=== PATIENT | female | born 1935 | race Caucasian/White ===

== ENCOUNTER 2019-02-05 20:19 | Observation (INO) ==
[2019-02-05] MEDS ORDERED: Aspirin 81 MG TAB.CHEW PO ONE (20:29)
[2019-02-05 21:31] LABS: Basophils % 0.5 %; Eosinophils # 0.5 K/mcL (0.0-0.6); Eosinophils % 5.5 %; Hematocrit 43.9 % (35.3-44.9); Hemoglobin 14.4 g/dL (11.5-15.4); Immature Granulocytes % 0.4 % (0-4); Lymphocytes # 1.3 K/mcL (0.6-4.6); Lymphocytes % 15.7 %; Mean Corpuscular HGB Conc 32.8 g/dL (31.6-35.5); Mean Corpuscular Hemoglobin 30.3 pg (28.0-33.3); Mean Corpuscular Volume 92.4 fL (83.0-100.0); Mean Platelet Volume 10.8 fL (9.4-12.4); Monocytes # 0.8 K/mcL (0.0-1.3); Monocytes % 9.6 %; Neutrophils # 5.6 K/mcL (1.6-8.9); Platelet Count 167 K/mcL (140-400); Red Blood Count 4.75 M/mcL (3.82-4.97); Red Cell Distribution Width 13.1 % (11.5-14.5); Segmented Neutrophils % 68.3 %; White Blood Count 8.2 K/mcL (4.3-11.1)
[2019-02-05 21:41] LABS: BUN/Creatinine Ratio 20 (6-26); Blood Urea Nitrogen 20 mg/dL (8-23); Calcium 9.5 mg/dL (8.6-10.3); Carbon Dioxide 25 mEq/L (23-29); Chloride 108 mEq/L (98-107); Glucose 99 mg/dL (70-105); Osmolality,Calculated 291 (280-300); Potassium 4.2 mEq/L (3.5-5.1); Sodium 139 mEq/L (136-145); Troponin I < 0.03 ng/mL (< 0.04); eGFR For African Americans > 60 (> 60); eGFR For Non-African Americans 54 (> 60)
--- NOTE | 2019-02-05 22:48 | Emergency Department Note ---
Disposition Clinical Impression: Chest pain Disposition: Admitted As Inpatient Condition: Good Time of Disposition: 22:48 General Adult HPI - General Chief complaint: ED Chest Pain Stated complaint: cp Time Seen by Provider: 02/05/19 20:28 Source: patient, family Limitations: no limitations - History of Present Illness HPI Narrative: Patient 83-year-old female presents to emergency department with chief complaint of chest pain. Patient reports she was at a [place] restaurant was eating salad started having a lot of mucus stuck that started a day or she had a spitted up within the patient noticed that she had a fullness sensation in her chest. Patient states that this feels similar to whenever she had to have her stents placed before in the past patient denies radiation of the shoulder the jaw states that they are prior cardiac issues she has not had those symptoms in the past. Patient denies diaphoresis states that by the time she arrived here t he emergency department her symptoms have resolved. Pain Scale: 0 - Related Data Home Medications Medication Instructions Recorded Confirmed Aspirin 81 mg pe PO DAILY 02/05/19 02/05/19 Citalopram 40 mg PO DAILY 02/05/19 02/05/19 Clopidogrel 75 mg PO DAILY 02/05/19 02/05/19 Isosorbide Mononitrate 30 mg pe PO DAILY 02/05/19 02/05/19 Losartan 25 mg PO DAILY 02/05/19 02/05/19 Meloxicam 7.5 mg PO DAILY 02/05/19 02/05/19 Simvastatin 40 mg PO DAILY 02/05/19 02/05/19 amLODIPine 10 mg PO DAILY 02/05/19 02/05/19 Allergies Allergy/AdvReac Type Severity Reaction Status Date / Time No Known Allergies Allergy Verified 02/05/19 20:53 All systems ED: reviewed and negative except as stated. Past Medical History - Past Medical History Attestation: Yes The following information was validated with the patient. Medical history: Reports: coronary artery disease, hyperlipidemia, hypertension, myocardial infarction Psychiatric history: Reports: no psych history - Social History Smoking Status: Never smoker Alcohol use: Reports: none Drug use: Reports: none Physical Exam General: Conversant and pleasant interactive and nontoxic. Head: Normocephalic/atraumatic Eyes:PERRLA, EOMI, no conjunctivitis Nares: Without d/c. Ears: No erythema or d/c noted. Oralpharnyx: P&MMM noted, Neck: Supple, no JVD or LUBRICATOR GRANULATOR noted. Cardovascular: regular rate and rhythm without murmur, brisk capillary refill, no peripheral edema. Lungs: Clear to ascultation bilaterally, non-labored Abd: Soft nontender, Non Distended, no guarding, no rebound. : Defered Extremities: moves all extremities equally Neuro: AOx3, no obvious gross neuro deficit Psych: Normal Affect Derm: No rash noted - General Limitations: no limitations General appearance: alert Course Course Narrative: The patient has been a symptomatically the emergency department since arrival. EKG showed no evidence of acute ischemic changes initial troponin is negative. Patient received aspirin in the emergency department and currently due to her elevated cardiac risk with a heart score of 4 the case was discussed with the hospitalist the patient will be admitted for observation Vital Signs Temperature 98.7 F 02/05/19 20:35 Pulse Rate 65 02/05/19 20:35 Respiratory Rate 16 02/05/19 20:35 Blood Pressure 145/77 02/05/19 20:35 O2 Sat by Pulse Oximetry 95 02/05/19 20:35 Temperature 98.7 F 02/05/19 20:35 Pulse Rate 65 02/05/19 20:35 Respiratory Rate 16 02/05/19 23:07 Blood Pressure 139/67 02/05/19 23:07 O2 Sat by Pulse Oximetry 95 02/05/19 20:35 Oxygen Delivery Oxygen Delivery Room Air Medical Decision Making - Lab Data Result diagrams: 02/05/19 21:08 02/05/19 21:08 Lab Results 02/05/19 02/05/19 Range/Units 21:08 21:08 WBC 8.2 (4.3-11.1) K/mcL RBC 4.75 (3.82-4.97) M/mcL Hgb 14.4 (11.5-15.4) g/dL Hct 43.9 (35.3-44.9) % MCV 92.4 (83.0-100.0) fL MCH 30.3 (28.0-33.3) pg MCHC 32.8 (31.6-35.5) g/dL RDW 13.1 (11.5-14.5) % Plt Count 167 (140-400) K/mcL MPV 10.8 (9.4-12.4) fL Immature Gran % 0.4 (0-4) % Seg Neutrophils % 68.3 % Lymphocytes % 15.7 % Monocytes % 9.6 % Eosinophils % 5.5 % Basophils % 0.5 % Neutrophils # 5.6 (1.6-8.9) K/mcL Lymphocytes # 1.3 (0.6-4.6) K/mcL Monocytes # 0.8 (0.0-1.3) K/mcL Eosinophils # 0.5 (0.0-0.6) K/mcL Basophils # 0.0 (0.0-0.2) K/mcL Sodium 139 (136-145) mEq/L Potassium 4.2 (3.5-5.1) mEq/L Chloride 108 H (98-107) mEq/L Carbon Dioxide 25 (23-29) mEq/L BUN 20 (8-23) mg/dL Creatinine 0.98 (0.60-1.20) mg/dL Est GFR ( Amer) > 60 (> 60) Est GFR (Non-Af Amer) 54 L (> 60) BUN/Creatinine Ratio 20 (6-26) Glucose 99 (70-105) mg/dL Calculated Osmolality 291 (280-300) Calcium 9.5 (8.6-10.3) mg/dL Troponin I < 0.03 (< 0.04) ng/mL
[2019-02-06] MEDS ORDERED: Naloxone 0.4 MG/ML INJ IVP PRN (04:13)
--- NOTE | 2019-02-06 04:27 | Internal Med History&Physical ---
Date of Encounter: 02/06/19 Time of Encounter: 03:30 Internal Medicine - H&P: HPI Chief complaint: Chest Pain Admitted From: Home Plans for Post Hospital Care: Home History of present illness: Ms. Zarco is a 83 year old female with past medical history significant for CAD with unknown number of stents, VA x2, hypertension, hyperlipidemia, and depression who presents for complaints of increased mucus production while eating followed by chest pain. She describes the pain as it "just hurt" and that it felt similar to her previous VA when she had her stents placed. Denies any radiation of pain and reports it was associated with shortness of breath. Reports she has had 3-4 episodes like this in the past, one of which was when she had her previous VA and had stents placed. Reports not all episodes have been associated with eating. Reports increased mucuous production seems likes shes vomiting but its not her food, its all mucous. ER reported EKG as having no acute ischemic changes. ER also obtained chest x-ray which showed no acute abnormality seen in the chest. Patient reports having 3 heart catheterizations in the same day with unknown amount of stents placed at [facility] in [place], [place] in July 2017. Also has had GI workup including endoscopy at [facility] around a year ago as well as they thought symptoms may also be GI related, however she reports endoscopy was normal. Denies any cardiac testing since stent placements in July 2017. Patient received aspirin while in the ER. She has been as ymptomatic since arrival to [facility]. Currently denies any headache, chest pain, shortness of breath, abdominal pain, bowel or bladder changes. Reports following regularly with her PCP and Cardiology. When discussing CODE STATUS she is unsure, would like to discuss with group social worker once her grandson arrives later this morning, but is agreeable to remaining a full code until then. Past Med Surg Social Fam HX - Past Medical History Medical history: coronary artery disease, hyperlipidemia, hypertension, myocardial infarction Psychiatric history: depression - Past Surgical History Surgical History: appendectomy, orthopedic, other Additional surgical history: cardiac stent(s). R knee. Tonsils - Social History Smoking Status: Never smoker Smokeless Tobacco Status: No Alcohol use: none Drug use: none Internal Medicine - H&P: Meds Aspirin 81 mg pe PO DAILY 02/05/19 [History] Citalopram 40 mg PO DAILY 02/05/19 [History] Clopidogrel 75 mg PO DAILY 02/05/19 [History] Isosorbide Mononitrate 30 mg pe PO DAILY 02/05/19 [History] Losartan 25 mg PO DAILY 02/05/19 [History] Meloxicam 7.5 mg PO DAILY 02/05/19 [History] Simvastatin 40 mg PO DAILY 02/05/19 [History] amLODIPine 10 mg PO DAILY 02/05/19 [History] Allergy/AdvReac Type Severity Reaction Status Date / Time No Known Allergies Allergy Verified 02/05/19 20:53 All Systems PM: A 10-system review of systems was performed and is negative for pertinent findings except as documented above in the HPI. - Constitutional Vitals: Temp Pulse Resp BP Pulse Ox 97.5 F L 63 16 136/56 95 02/06/19 04:07 02/06/19 04:07 02/06/19 04:07 02/06/19 04:07 02/06/19 04:07 Exam: General: Alert and oriented. Skin:Normal color, no rash, no lesions. HEENT:EOM, pupils equal, round and reactive. Cardiovascular:Normal S1 & S2, no rubs, murmurs or gallops. No JVD. Pulse regular. Chest non tender to palpation. Lungs:Normal breath sounds, no wheezes or crackles. Abdomen:Soft, non-tender, no rigidity. Extremities:No deformity, no edema or tenderness, no joint swelling or clubbing. Neurological:Normal cognition and motor skills. Pulses:Carotid and radial pulses normal +2. Rest of the physical exam is non contributory. Internal Med - H&P Results - Labs CBC & Chem 7: 02/06/19 03:27 02/06/19 03:27 Labs: Short CBC 02/05/19 Range/Units 21:08 WBC 8.2 (4.3-11.1) K/mcL Hgb 14.4 (11.5-15.4) g/dL Hct 43.9 (35.3-44.9) % Plt Count 167 (140-400) K/mcL Neutrophils # 5.6 (1.6-8.9) K/mcL BMP 02/05/19 21:08 Sodium 139 Potassium 4.2 Chloride 108 H Carbon Dioxide 25 BUN 20 Creatinine 0.98 Glucose 99 Calcium 9.5 Cardiac Enzymes 02/05/19 Range/Units 21:08 Troponin I < 0.03 (< 0.04) ng/mL - Impressions ITS Impressions Chest X-Ray 02/05/19 21:48 IMPRESSION: No acute abnormalities seen in the chest D/ / Rodrigue Jacob MD / Rodrigue Jacob MD Interpreting Provider: Rodrigue Jacob MD - Assessment and Plan (1) Chest pain Current Visit: Yes Status: Acute Assessment and plan: Reported episode of increased mucus production while eating followed by chest pain that she described as "just hurt", similar to pain she felt during previous VA. Patient reports having 3 heart catheterizations in the same day with unknown amount of stents placed at [facility] in [place], [place] in July 2017. Chest pain currently resolved since arrival. Received aspirin in ER. ER reported EKG as having no acute ischemic changes. Initial troponin negative, serial troponins ordered. Continuous cardiac monitoring. Echocardiogram ordered. Qualifiers: Qualified Code(s): R07.9 - Chest pain, unspecified (2) Gastrointestinal problem Current Visit: Yes Status: Acute Assessment and plan: Acute on chronic. Reports episode of increased mucus production while eating followed by chest pain. Reports 3-4 similar episodes in the past. Not all of which were associated with eating. Reports increased mucuous production seems likes shes vomiting but its not her food, its all mucous. Had GI workup for same around a year ago at [facility] including endoscopy that she reports as being normal. Follow up outpatient once cardiac evaluation complete. (3) Hyperlipidemia Current Visit: Yes Status: Chronic Assessment and plan: Continue home medications once verified. Qualifiers: Hyperlipidemia type: unspecified Qualified Code(s): E78.5 - Hyperlipidemia, unspecified (4) Depression Current Visit: Yes Status: Chronic Assessment and plan: Continue home medications once verified. Qualifiers: Depression Type: unspecified Qualified Code(s): F32.9 - Major depressive disorder, single episode, unspecified (5) Hypertension Current Visit: Yes Status: Chronic Assessment and plan: Continue home medications once verified. Qualifiers: Hypertension type: unspecified Qualified Code(s): I10 - Essential (primary) hypertension - Time Spent With Patient Total time spent is greater than 50% in coordination of care (as documented) at patient's floor/unit and/or counseling patient:
[2019-02-06 05:19] LABS: Basophils % 0.3 %; Eosinophils # 0.4 K/mcL (0.0-0.6); Hematocrit 42.8 % (35.3-44.9); Hemoglobin 13.9 g/dL (11.5-15.4); Immature Granulocytes % 0.3 % (0-4); Lymphocytes # 1.6 K/mcL (0.6-4.6); Lymphocytes % 23.5 %; Mean Corpuscular HGB Conc 32.5 g/dL (31.6-35.5); Mean Corpuscular Hemoglobin 30.1 pg (28.0-33.3); Mean Corpuscular Volume 92.6 fL (83.0-100.0); Mean Platelet Volume 11.5 fL (9.4-12.4); Monocytes # 0.6 K/mcL (0.0-1.3); Monocytes % 8.8 %; Neutrophils # 4.1 K/mcL (1.6-8.9); Platelet Count 150 K/mcL (140-400); Red Blood Count 4.62 M/mcL (3.82-4.97); Red Cell Distribution Width 13.2 % (11.5-14.5); Segmented Neutrophils % 61.1 %; White Blood Count 6.7 K/mcL (4.3-11.1)
[2019-02-06 05:41] LABS: BUN/Creatinine Ratio 18 (6-26); Blood Urea Nitrogen 17 mg/dL (8-23); Calcium 9.1 mg/dL (8.6-10.3); Carbon Dioxide 24 mEq/L (23-29); Chloride 109 mEq/L (98-107); Glucose 99 mg/dL (70-105); Osmolality,Calculated 294 (280-300); Potassium 3.9 mEq/L (3.5-5.1); Sodium 141 mEq/L (136-145); eGFR For African Americans > 60 (> 60); eGFR For Non-African Americans 57 (> 60)
[2019-02-06] MEDS ORDERED: amLODIPine 5 MG TABLET PO SCH (09:00)
[2019-02-06] MEDS ORDERED: Isosorbide MONOnitrate (24 HR) 30 MG TAB.ER.24H PO SCH (09:00)
[2019-02-06] MEDS ORDERED: Aspirin 81 MG TAB.CHEW PO SCH (09:00)
[2019-02-06] MEDS ORDERED: Regadenoson 0.4 MG/5 ML SYRINGE IVP ONE (10:14)
[2019-02-06 12:45] VITALS: BP 154/71
--- NOTE | 2019-02-06 13:58 | Discharge Summary ---
- NOTES TO OUTPATIENT PROVIDER Notes to Outpatient Provider: f/u with PCP in one week. f/u with GI Dr. Callahan in 2-3 weeks. f/u with Cardiology in 2 weeks. Date of Encounter: 02/06/19 Time of Encounter: 13:50 - Discharge Diagnosis (1) Chest pain Priority: Primary Status: Acute Qualifiers: Qualified Code(s): R07.9 - Chest pain, unspecified (2) Gastrointestinal problem Priority: Secondary Status: Acute (3) Hyperlipidemia Priority: Secondary Status: Chronic Qualifiers: Hyperlipidemia type: unspecified Qualified Code(s): E78.5 - Hyperlipidemia, unspecified (4) Depression Priority: Secondary Status: Chronic Qualifiers: Depression Type: unspecified Qualified Code(s): F32.9 - Major depressive disorder, single episode, unspecified (5) Hypertension Priority: Secondary Status: Chronic Qualifiers: Hypertension type: essential hypertension Qualified Code(s): I10 - Essential (primary) hypertension Hospital course: Ms. Zarco is a 83 year old female with past medical history significant for CAD with s/p PCI, hypertension, hyperlipidemia, and depression who presented to ER with complaints of increased mucus production while eating followed by chest pain. She describes the pain as it "just hurt" and that it felt similar to her previous [place] when she had her stents placed. Denies any radiation of pain. She felt more like some thing stuck in her chest. She was admitted in the hospital and placed on lever operator. Her serial troponin came back is negative. Her EKG did not show any acute ischemic changes. Since patient is high risk for ACS she did go for nuclear stress test which came back is negative for ischemia/infarction. She denied any more CP now. She is able to tolerate oral intake well now. Her chest pain seems to be secondary to possible esophagitis stenosis, recommend to f/u with GI for further work up, which she is already in the process of f/u with them. - Time Spent with Patient Total time spent providing and/or coordinating discharge services: - Discharge Medications Prescriptions: Continued Simvastatin 40 mg PO DAILY Meloxicam 7.5 mg PO DAILY Losartan 25 mg PO DAILY Isosorbide Mononitrate 30 mg pe PO DAILY Clopidogrel 75 mg PO DAILY Citalopram 40 mg PO DAILY Aspirin 81 mg pe PO DAILY amLODIPine 10 mg PO DAILY Home Medications: Aspirin 81 mg pe PO DAILY 02/05/19 [History] Citalopram 40 mg PO DAILY 02/05/19 [History] Clopidogrel 75 mg PO DAILY 02/05/19 [History] Isosorbide Mononitrate 30 mg pe PO DAILY 02/05/19 [History] Losartan 25 mg PO DAILY 02/05/19 [History] Meloxicam 7.5 mg PO DAILY 02/05/19 [History] Simvastatin 40 mg PO DAILY 02/05/19 [History] amLODIPine 10 mg PO DAILY 02/05/19 [History] Allergies/Adverse Reactions: Allergy/AdvReac Type Severity Reaction Status Date / Time No Known Allergies Allergy Verified 02/05/19 20:53 Date of admission: 02/05/19 22:53 Primary care physician: PCP NONE Consults: 02/06/19 04:15 Consult to Control Panel Assembler [CONS] Routine Reason for SW Consult: Would like to discuss advance directives once grandson arrives later this morning. - Constitutional Vitals: Temp Pulse Resp BP Pulse Ox 97.7 F 55 16 154/71 96 02/06/19 12:44 02/06/19 12:44 02/06/19 12:44 02/06/19 12:44 02/06/19 12:44 General appearance: Present: cooperative, A&O X 3, no acute distress, answers questions appropriately Exam: Gen: Alert, awake, Oriented to time,place and person Chest: Diminished breath sounds B/L, No wheezing, No crackles, No rales Heart: S1S2+ RRR No murmurs Abd: Soft, NT, BS +, No organomegaly Ext: No edema, pulses are palpable, No calf tenderness Neuro : No acute focal neuro deficits noticed Skin: No rash. - Patient Status Disposition: Home, Self-Care Condition: Good Overall status at discharge: patient is back to baseline - Discharge Instructions Follow Up With: NONE,PCP [Primary Care Provider] - Elda Callahan MD [Partnered Physician] - - Diet and Activity Activity: increase activity as tolerated Diet: low salt diet
--- NOTE | 2019-02-06 16:16 | Electrocardiograph Report ---
[place] [id number] Test Date: 2019-02-05 Pat Name: Amanda Zarco Department: 104 Room: 3B33 Gender: F General Manager Food: : 1935 Requested By: Maryann Ogden Order Number: [id number] Reading MD: Maureen Tinsley Measurements Intervals [place] Rate: 64 P: 50 AL: 159 QRS: 1 QRSD: 82 T: 62 QT: 407 QTc: 416 Interpretive Statements SINUS RHYTHM POSSIBLE ANTERIOR MYOCARDIAL INFARCTION, PROBABLY OLD INFERIOR MYOCARDIAL INFARCTION, PROBABLY OLD Electronically Signed On 02-06-2019 16:14:32 EDT by Maureen Tinsley
[2019-02-06] MEDS ORDERED: *HR* Heparin 5,000 UNIT/ML VIAL SQ SCH (18:00)
== END 2019-02-06 14:35 | disposition home or self-care (01) ==
LOC: 3BNU 20:19 → EMEROOARM 20:19 → SUATTDRO 22:53 → 3BNU 23:15
PROVIDERS: ADMIT Internal Medicine; ATTEND Family Medicine